=== PATIENT | female | born 1945 | race Caucasian/White ===

== ENCOUNTER 2017-01-25 06:53 | Day surgery (SDC) | payer OTHER ==
[2017-01-22 11:39] VITALS: BMI 44.3
[2017-01-25] MEDS ORDERED: MIDAZOLAM HCL 2 MG/2 ML SINGLE DOSE VIAL ONE ×2 (08:43)
[2017-01-25 10:16] VITALS: BP 137/77; PULSE 66; TEMP 98
--- NOTE | 2017-01-26 12:09 | PATH ---
Surgical Pathology Report Patient Name: AL CHAVIRA [facility]. Rec. #: [id number] /Age/Gender: 1945 (Age: 71) / F Account: [id number] Location: ASU-ENDOSCOPY Taken: 01/25/2017 Received: 01/25/2017 Reported: 01/26/2017 Physicians: Rachael Ayers M.D. Specimen(s) Received A: BX MID RIGHT COLON B: BX ILEOCECAL VALVE C: POLYP SIGMOID Clinical History Polyps surveillance, constipation Colon polyp, diverticulosis Final Diagnosis A. COLON, MID RIGHT, BIOPSY: POLYPOID FRAGMENTS OF COLONIC MUCOSA WITH FEATURES SUGGESTIVE OF INFLAMMATORY/POSTINFLAMMATORY TYPE POLYP. NO SUBMUCOSAL TISSUE PRESENT FOR EVALUATION OF LIPOMA. B. ILEOCECAL VALVE, BIOPSY: COLONIC MUCOSA WITH FOCAL MILD NONSPECIFIC ACTIVE INFLAMMATION (SEE COMMENT). NO EVIDENCE OF SIGNIFICANT ARCHITECTURAL DISTORTION, GRANULOMATA OR DYSPLASIA. NO SUBMUCOSAL TISSUE PRESENT FOR EVALUATION OF LIPOMA. Comment: Mild active inflammation may be a result of infection of drug/toxic injury. No submucosal tissue is present for evaluation. Clinical and endoscopic correlations are suggested. C. COLON, SIGMOID, POLYP, POLYPECTOMY: FRAGMENTS OF INFLAMED HYPERPLASTIC POLYP. Electronically Signed Robert Us M.D. Gross Description A. Received in formalin, labeled "biopsy mid right colon" are 2 merino, irregular portions of soft tissue measuring 0.1 and 0.3 cm in greatest dimension. The specimens are submitted in toto in one cassette. B. Received in formalin, labeled "biopsy ileocecal valve" are 2 merino, irregular portions of soft tissue measuring 0.1 and 0.7 cm in greatest dimension. The specimens are submitted in toto in one cassette. C. Received in formalin, labeled "polyp sigmoid" are 3 merino, irregular portions of soft tissue ranging from 0.2-0.7 cm in greatest dimension. The specimens are submitted in toto in one cassette. 01/25/201701/25/2017
== END 2017-01-25 10:15 | disposition home or self-care (01) ==
LOC: JASU-ENDO 06:53
PROVIDERS: ATTEND Internal Medicine Gastroenterology
PROC: 0DBN8ZX Excision of Sigmoid Colon, Via Natural or Artificial Opening Endoscopic, Diagnostic (ICD-10-PCS; 2017-01-25)
PROC: 0DBK8ZX Excision of Ascending Colon, Via Natural or Artificial Opening Endoscopic, Diagnostic (ICD-10-PCS; 2017-01-25)
PROC: 0DBC8ZX Excision of Ileocecal Valve, Via Natural or Artificial Opening Endoscopic, Diagnostic (ICD-10-PCS; principal; 2017-01-25 08:00)
DX: Z86.010 Personal history of colon polyps (principal); D17.5 Benign lipomatous neoplasm of intra-abdominal organs; D12.5 Benign neoplasm of sigmoid colon; K57.30 Diverticulosis of large intestine without perforation or abscess without bleeding; K64.8 Other hemorrhoids
CPT/HCPCS: 88305-TC

== ENCOUNTER 2018-11-06 08:14 | Emergency (ER) | payer OTHER ==
[2018-11-06 08:42] VITALS: BP 156/83; PULSE 105; TEMP 98.8; BMI 37.4
[2018-11-06] MEDS ORDERED: ALBUTEROL SO4 2.5/IPRATROPIUM 0.5 INH SOL 3 ML VIAL.NEB. NEB ONE (09:02)
[2018-11-06 09:18] LABS: EOS % 3.4 % (0-4.5); HEMATOCRIT 41.7 % (32.4-45.2); HEMOGLOBIN 14.6 GM/dL (10.7-15.3); LYMPH % 10.2 % (8-40); MEAN CELL VOLUME 85.6 fl (80-96); MONO % 8.1 % (3.8-10.2); NEUT % 77.3 % (42.8-82.8); PLATELET COUNT 250 K/MM3 (134-434); RBC 4.86 M/mm3 (3.60-5.2); RDW 13.5 % (11.6-15.6); WHITE BLOOD COUNT 13.8 K/mm3 (4.0-10.0)
--- NOTE | 2018-11-06 09:19 | PDOC ---
History of Present Illness - General Chief Complaint: Respiratory Stated Complaint: SOB Time Seen by Provider: 11/06/18 08:55 History Source: Patient Exam Limitations: No Limitations - History of Present Illness Initial Comments: 11/06/18 09:17 73 yr female history of HTN with cough for one month not improving with prednisone x3 weeks. Pt with c/o wheezing and shortness of breath today. Pt has no fever no chest pain no recent injury or travel. No change in enviromental factors. Severity: reports: mild Past History - Past Medical History Allergies/Adverse Reactions: Allergies Allergy/AdvReac Type Severity Reaction Status Date / Time Penicillins Allergy Unknown Verified 11/06/18 08:32 Home Medications: Ambulatory Orders Amlodipine Besylate 10 mg PO DAILY 01/22/17 Aspirin [ASA -] 81 mg PO DAILY 01/22/17 Atenolol/Chlorthalidone [Atenolol-Chlorthalidone 50-25] 1 each PO DAILY Atorvastatin Ca [Lipitor] 10 mg PO HS 01/22/17 Prednisone [Deltasone] 40 mg PO DAILY #8 tablet 11/06/18 GI Disorders: Yes (COLON POLYP,CONSTIPATION) HTN: Yes Hypercholesterolemia: Yes (HYPERLIPIDEMIA) - Surgical History Cholecystectomy: Yes Orthopedic Surgery: Yes (RIGHT PARTIAL KNEE REPLACEMENT) - Suicide/Smoking/Psychosocial Hx Smoking Status: No Smoking History: Never smoked Have you smoked in the past 12 months: No Number of Cigarettes Smoked Daily: 0 Hx Alcohol Use: No Drug/Substance Use Hx: No *Physical Exam - Vital Signs Last Vital Signs Temp Pulse Resp BP Pulse Ox 98.8 F 105 H 20 156/83 94 L 11/06/18 08:32 11/06/18 08:32 11/06/18 08:32 11/06/18 08:32 11/06/18 08:32 - Physical Exam General Appearance: Yes: Nourished, Appropriately Dressed HEENT: positive: EOMI, JACQUELINE Respiratory/Chest: positive: Wheezing (exp ) Cardiovascular: positive: Regular Rhythm, Regular Rate Gastrointestinal/Abdominal: positive: Normal Bowel Sounds, Soft Musculoskeletal: positive: Normal Inspection Extremity: positive: Normal Capillary Refill, Normal Inspection, Normal Range of Motion Integumentary: positive: Normal Color, Dry, Warm Neurologic: positive: Fully Oriented, Alert, Normal Mood/Affect, Normal Response , Motor Strength 5/5 Moderate Sedation - Procedure Monitoring Vital Signs: Procedure Monitoring Vital Signs Temperature 98.8 F 11/06/18 08:32 Pulse Rate 105 H 11/06/18 08:32 Respiratory Rate 20 11/06/18 08:32 Blood Pressure 156/83 11/06/18 08:32 O2 Sat by Pulse Oximetry (%) 94 L 11/06/18 08:32 Heart Score/ECG Review - History History: Slightly suspicious - Age Age: >/= 65 - Risk Factors Risk Factors Heart Score: Yes Hx Hypertension, Yes Hx Obesity Based on the list above the patient has:: 1-2 risk factors - ECG Intrepretation Rhythm: Regular Rhythm - [place] Austin: Normal - ECG Impressions Normal ECG: No Non-specific ST Elevation: No Ischemic Changes: No Comment:: 11/06/18 09:21 signed by ED Treatment Course - LABORATORY CBC & Chemistry Diagram: 11/06/18 09:00 11/06/18 09:00 - RADIOLOGY Radiology Studies Ordered: Category Date Time Status CHEST PA & LAT [RAD] Stat Radiology 11/06/18 09:02 Ordered Medical Decision Making - Medical Decision Making 11/06/18 09:18 cc: cough wheezing shortness of breath for one month worse today not improving with 2 rounds of steroids pt asking for CXR 11/06/18 10:29 pulse ox 96% RA after nebulizer pt feels better lungs clear after nebulizer will give prednisone now pt ambulating steady gait clear sentences no distress will dc home with strict follow up with the pulmonary doctor on Nov 10 as planned. all copies of results given . pt agrees with plan all questions asked and answered. 11/07/18 08:39 spoke to pt this morning regarding courtesy follow up. pt states she has some improvement in wheezing, denies any shortness of breath. denies any chest pain. I have inst pt to return to ER for any worsening symptoms, otherwise keep appointment on November 10 with pulmonary. Pt agrees with plan all questions asked and answered. *DC/Admit/Observation/Transfer Diagnosis at time of Disposition: Bronchitis - Discharge Dispostion Disposition: HOME Condition at time of disposition: Good - Prescriptions Prescriptions: Prednisone [Deltasone] 40 mg PO DAILY #8 tablet - Referrals Referrals: Helen Bucio MD [Primary Care Provider] - - Patient Instructions Additional Instructions: follow up with the heel lift gouger on Nov 10 as planned drink pleanty of water take prednisone as directed use the inhlaer four times a day as you have at home bring copies of EKG labs and chest xray with you to Return to ER for any worsening symptoms - Post Discharge Activity
[2018-11-06 10:16] LABS: ALBUMIN 3.8 g/dl (3.4-5.0); ALK PHOS 87 U/L (45-117); ANION GAP 8 MMOL/L (8-16); BILIRUBIN,TOTAL 0.5 mg/dL (0.2-1); BLOOD UREA NITROGEN 17 mg/dL (7-18); CALCIUM 9.3 mg/dL (8.5-10.1); CHLORIDE 105 mmol/L (98-107); CO2 28 mmol/L (21-32); CREATININE 0.8 mg/dL (0.55-1.3); GLUCOSE,RANDOM 116 mg/dL (74-106); N-TERMINAL BNP 61.8 pg/ml (5-125); SGOT/AST 24 U/L (15-37); SGPT/ALT 23 U/L (13-61); SODIUM 141 mmol/L (136-145); TOT PROT 7.2 g/dl (6.4-8.2)
[2018-11-06] MEDS ORDERED: predniSONE 20 MG TABLET (UD) PO ONE (10:27)
--- NOTE | 2018-11-06 11:25 | EKG ---
Test Reason : Blood Pressure : / mmHG Vent. Rate : 102 BPM Atrial Rate : 102 BPM P-R Int : 142 ms QRS Dur : 092 ms QT Int : 358 ms P-R-T Axes : 007 -45 024 degrees QTc Int : 466 ms SINUS TACHYCARDIA LEFT ANTERIOR FASCICULAR BLOCK ABNORMAL ECG NO PREVIOUS ECGS AVAILABLE Confirmed by JUANJO ESCOBAR, RENEA ([id number]) on 11/06/2018 11:25:36 AM Referred By: HAYES Confirmed By:RENEA GEIGER MD
== END 2018-11-06 10:40 | disposition home or self-care (01) ==
LOC: JERFT 08:14
PROC: 3E0F7GC Introduction of Other Therapeutic Substance into Respiratory Tract, Via Natural or Artificial Opening (ICD-10-PCS; principal; 2018-11-06)
DX: J40 Bronchitis, not specified as acute or chronic (principal); I10 Essential (primary) hypertension; E78.5 Hyperlipidemia, unspecified; Z87.19 Personal history of other diseases of the digestive system
CPT/HCPCS: 36415; 71046-TC-FY; 80053; 82550; 83880; 84484; 85025; 93005; 93010; 94640; 99281-25

== ENCOUNTER 2019-03-24 12:50 | Emergency (ER) | payer OTHER ==
--- NOTE | 2019-03-24 13:36 | PDOC ---
History of Present Illness - General Chief Complaint: Injury Stated Complaint: FELL Time Seen by Provider: 03/24/19 13:35 - History of Present Illness Initial Comments: 03/24/19 15:27 Chief complaint: Injury to left shoulder and rib cage History of present illness: Patient was working as a volunteer at [employer], tripped and landed on her left shoulder, with her arm impacting her rib cage. No loss of consciousness, dizziness, feelings of being faint, head or neck injury, injury to the abdomen spine pelvis or other extremities. Review of systems: As above, otherwise negative Past medical history: High blood pressure, seasonal ALLERGIES. Social/family history reviewed and noncontributory Physical exam: Alert and oriented well-developed well-nourished no acute distress cheerful and cooperative Afebrile, vital signs normal He clear Neck supple without tenderness or deformity, full range of motion without pain. Lungs clear to P&A bilaterally, with full breath sounds throughout. There is tenderness over the rib cage, anteriorly and laterally, without crepitus or deformity CV S1 and S2 normal without murmur rub or gallop pulses full and symmetric no JVD or edema no bruits Abdomen soft nontender without mass or organomegaly No pelvic or spine tenderness or deformity Extremities: There is diffuse swelling and tenderness over the humeral head, left shoulder. There is no deformity suggestive of a dislocation. Distal pulses in the extremity are full. There are no sensory deficits, specifically in the deltoid or brachial areas. No other visible or palpable trauma to other areas of the extremity, or to the other 3 extremities. Impression: Contusion versus fracture left rib cage, no sign of cardiac or pulmonary injury. Rotator cuff contusion left shoulder, rule out fracture humerus. Plan: X-rays demonstrate a normal chest and no obvious rib fractures. There is a fracture of the humeral head with minimal displacement, minimal impaction, and no dislocation. Dr. Edwards, orthopedist, was contacted by phone. Patient's symptoms and x-ray were discussed. He will see the patient in the emergency room. 03/24/19 15:31 Past History - Past Medical History Allergies/Adverse Reactions: Allergies Allergy/AdvReac Type Severity Reaction Status Date / Time Penicillins Allergy Unknown Verified 03/24/19 14:14 Home Medications: Ambulatory Orders Aspirin [ASA -] 81 mg PO HS 01/22/17 Amlodipine Besylate [Norvasc -] 5 mg PO BID 03/24/19 Montelukast Na [Singulair -] 10 mg PO HS 03/24/19 Oxycodone HCl/Acetaminophen [Percocet 5-325 mg Tablet] 1 tab PO Q4H PRN #20 tablet MDD 4 03/24/19 GI Disorders: Yes (COLON POLYP,CONSTIPATION) HTN: Yes Hypercholesterolemia: Yes (HYPERLIPIDEMIA) - Surgical History Cholecystectomy: Yes Orthopedic Surgery: Yes (RIGHT PARTIAL KNEE REPLACEMENT) - Suicide/Smoking/Psychosocial Hx Smoking Status: No Smoking History: Never smoked Have you smoked in the past 12 months: No Number of Cigarettes Smoked Daily: 0 Hx Alcohol Use: No Drug/Substance Use Hx: No Medical Decision Making - Medical Decision Making 03/24/19 15:35 Dr. Edwards evaluated the patient in the ER. He recommended sling and swath. We'll follow-up in the office. No further acute treatment. Analgesics prescribed. Patient fully ambulatory and in no significant pain upon discharge with all up as directed *DC/Admit/Observation/Transfer Diagnosis at time of Disposition: Fracture, humerus Qualifiers: Encounter type: initial encounter Humerus Location: proximal Fracture type: closed Fracture morphology: other fracture Fracture alignment: nondisplaced Laterality: left Qualified Code(s): S42.295A - Other nondisplaced fracture of upper end of left humerus, initial encounter for closed fracture Contusion of rib on left side Qualifiers: Encounter type: initial encounter Qualified Code(s): S20.212A - Contusion of left front wall of thorax, initial encounter - Discharge Dispostion Disposition: HOME Condition at time of disposition: Improved Decision to Admit order: No - Prescriptions Prescriptions: Oxycodone HCl/Acetaminophen [Percocet 5-325 mg Tablet] 1 tab PO Q4H PRN #20 tablet MDD 4 PRN Reason: Severe Pain - Referrals Referrals: Maulik Edwards MD [Staff Physician] - 24 hours - Patient Instructions Printed Discharge Instructions: How to Use a Sling, DI for Shoulder Fracture Additional Instructions: Rest, ice, sling for comfort. Pain medication as directed. See orthopedist 24 hours for further treatment. - Post Discharge Activity
[2019-03-24] MEDS ORDERED: KETOROLAC TROMETHAMINE 60 MG/2 ML VIAL IM ONE (13:37)
[2019-03-24] MEDS ORDERED: KETOROLAC TROMETHAMINE 30 MG/1 ML VIAL ONE (13:58)
[2019-03-24 14:02] VITALS: BP 133/54; PULSE 77; TEMP 98.3; BMI 42.9
--- NOTE | 2019-03-24 18:20 | CONS ---
DATE OF CONSULTATION: 03/24/2019 ORTHOPEDIC CONSULTATION HISTORY OF PRESENT ILLNESS: The patient is a 73-year-old female complaining of left shoulder pain status post fall earlier today. She presented to the emergency room at [facility] complaining of pain in the left shoulder. Negative complaints of LOC, lightheadedness, dizziness, blurry vision. PHYSICAL EXAMINATION: Patient has a good deal of tenderness in the proximal humerus. She has a nontender clavicle AC joint acromion, but does have significant tenderness in the proximal humerus region, mild to moderate swelling of the proximal arm, excellent active range of motion left elbow wrist and fingers, intact ulnar medial radial sensation and motor, 2+ pulses intact sensation throughout, marked increased pain with any range of motion to the left shoulder region. X-rays taken today in the [facility] emergency room show a left proximal humerus fracture impacted in acceptable alignment. IMPRESSION: Left impacted proximal humerus fracture with an acceptable alignment. PLAN: Sling and to left upper extremity. Head of bed at 60 to 90 degrees 31/05. Analgesics, ice, and immobilization, and followup appointment to see me in my office in 7 to 10 days . MARCOS NIELSEN M.D. [id number]
== END 2019-03-24 15:50 | disposition home or self-care (01) ==
LOC: FER 12:50
PROC: 3E0233Z Introduction of Anti-inflammatory into Muscle, Percutaneous Approach (ICD-10-PCS; principal; 2019-03-24)
DX: S42.295A Other nondisplaced fracture of upper end of left humerus, initial encounter for closed fracture (principal); S20.212A Contusion of left front wall of thorax, initial encounter; Y99.0 Civilian activity done for income or pay; W18.39XA Other fall on same level, initial encounter; Y93.89 Activity, other specified; Y92.099 Unspecified place in other non-institutional residence as the place of occurrence of the external cause; I10 Essential (primary) hypertension; E78.5 Hyperlipidemia, unspecified
CPT/HCPCS: 71101-TC-LT-FY; 73030-TC-LT-FY; 96372; 99282-25

== ENCOUNTER 2023-02-16 06:51 | Day surgery (SDC) | payer OTHER ==
[2023-02-10 15:32] VITALS: BMI 36.9
[2023-02-16] MEDS ORDERED: PROPOFOL 120 ML ONE (07:04)
[2023-02-16] MEDS ORDERED: LIDOCAINE HCL/PF 2% SDV 5ML VIAL ONE (07:05)
[2023-02-16] MEDS ORDERED: PROPOFOL 40 ML ONE (07:05)
[2023-02-16 09:12] VITALS: TEMP 97.8
[2023-02-16 09:45] VITALS: BP 110/65; PULSE 66; RESP 18
== END 2023-02-16 09:45 | disposition home or self-care (01) ==
LOC: FASU-ENDO 06:51
PROVIDERS: ATTEND Internal Medicine Gastroenterology
PROC: 0DJD8ZZ Inspection of Lower Intestinal Tract, Via Natural or Artificial Opening Endoscopic (ICD-10-PCS; principal; 2023-02-16 08:52)
DX: Z12.11 Encounter for screening for malignant neoplasm of colon (principal); Z86.010 Personal history of colon polyps; K64.1 Second degree hemorrhoids